=== PATIENT | male | born 1975 | race Two or more races ===

== ENCOUNTER 2018-04-27 10:26 | Day surgery (SDC) | payer OTHER ==
--- NOTE | 2018-04-06 12:14 | RADIOLOGY REPORT (SQ) ---
EXAM DESCRIPTION: CHEST PA/LATERAL COMPLETED DATE/TIME: 04/06/2018 11:24 am REASON FOR STUDY: Z01.810 COMPARISON: None. EXAM PARAMETERS: NUMBER OF VIEWS: two views TECHNIQUE: Digital Frontal and Lateral radiographic views of the chest acquired. RADIATION DOSE: NA LIMITATIONS: none FINDINGS: LUNGS AND PLEURA: No opacities, masses or pneumothorax. No pleural effusion. MEDIASTINUM AND HILAR STRUCTURES: No masses or contour abnormalities. HEART AND VASCULAR STRUCTURES: Heart normal size. No evidence for failure. BONES: No acute findings. HARDWARE: None in the chest. OTHER: No other significant finding. IMPRESSION: 1. NO SIGNIFICANT RADIOGRAPHIC FINDING IN THE CHEST. TECHNICAL DOCUMENTATION: JOB ID: [id number] [employer]- All Rights Reserved Reading location - IP/workstation name: [email or web address]
[2018-04-06 12:23] LABS: APPEARANCE,URINE CLEAR; BILIRUBIN,URINE NEGATIVE (NEGATIVE); COLOR,URINE YELLOW; GLUCOSE, URINE NEGATIVE (NEGATIVE); KETONES,URINE NEGATIVE (NEGATIVE); LEUKOCYTE ESTERASE,URINE NEGATIVE (NEGATIVE); NITRITE,URINE NEGATIVE (NEGATIVE); PROTEIN,URINE NEGATIVE (NEGATIVE); URINE SPECIFIC GRAVITY 1.013; UROBILINOGEN,URINE NEGATIVE mg/dL (<2.0)
[2018-04-06 12:35] LABS: HEMATOCRIT 45.4 % (37.9-51.0); HEMOGLOBIN 15.4 g/dL (13.5-17.0); MEAN CORPUSCULAR HEMOGLOBIN 31.8 pg (27.0-33.4); MEAN CORPUSCULAR VOLUME 93 fl (80-97); PLATELET COUNT 289 10^3/uL (150-450); RED BLOOD COUNT 4.86 10^6/uL (4.35-5.55); RED CELL DISTRIBUTION WIDTH 13.3 % (11.5-14.0); WHITE BLOOD COUNT 4.9 10^3/uL (4.0-10.5)
[2018-04-06 13:01] LABS: ANION GAP 12 (5-19); BLOOD UREA NITROGEN 9 mg/dL (7-20); CALCIUM 9.1 mg/dL (8.4-10.2); CARBON DIOXIDE 25 mmol/L (22-30); CHLORIDE 103 mmol/L (98-107); GLUCOSE 94 mg/dL (75-110); POTASSIUM 4.7 mmol/L (3.6-5.0); SODIUM 140.3 mmol/L (137-145)
--- NOTE | 2018-04-06 22:58 | EKG REPORT ---
SEVERITY:- NORMAL ECG - SINUS RHYTHM : Confirmed by: Daylin West 06-Apr-2018 22:57:48
[~2018-04-27 10:26] MED LIST: CEFAZOLIN 2 GM/D5W RTU 2 GM/50 ML RTUPB IV ONE; CEFAZOLIN 2 GM/D5W RTU 2 GM/50 ML RTUPB IV PRN; CEFAZOLIN SODIUM 2 GM in DEXTROSE 5%-WATER 100 ML IV PRN; LACTATED RINGERS 1000 ML IV PRN; LIDOCAINE 0.5% INJ-PF (5 MG/ML) 50 ML SDV SUBCUT PRN; LIDOCAINE 1% INJ-PF (10 MG/ML) 30 ML SDV ONE
[2018-04-27] MEDS ORDERED: BUPIVACAINE HCL 0.5 % INJ/PF 30 ML SDV ONE (11:28)
[2018-04-27] MEDS ORDERED: PROPOFOL INJ 200 MG/20 ML VIAL IV ONE (11:55)
[2018-04-27] MEDS ORDERED: FENTANYL CITRATE INJ/PF 100 MCG/2 ML AMPUL ONE (11:55)
[2018-04-27] MEDS ORDERED: MIDAZOLAM 2 MG/2 ML INJ ONE (11:55)
--- NOTE | 2018-04-27 13:03 | Operative Report ---
Operative Report DATE OF SURGERY: 04/27/18 PREOPERATIVE DIAGNOSIS: Foreign body right dorsal next MCP joint OPERATION: Removal of foreign body SURGEON: JAYME TRACEY ANESTHESIA: LMAC TISSUE REMOVED OR ALTERED: Foreign body to pathology ESTIMATED BLOOD LOSS: 25 PROCEDURE: With the patient supine on the operative the right upper extremities prepped and draped in sterile fashion. The skin overlying the dorsal aspect of the right index finger MCP joint is infiltrated with a combination of Xylocaine and Marcaine. A 1 cm transverse incision is made. The tissue was exposed bluntly. Using fluoroscopic guidance the foreign body is delivered into the field and removed using hemostat. The wound is irrigated. Hemostasis obtained with bipolar cautery. Wound is then closed with a single nylon suture and a compressive dressing. The patient was turned to PACU in satisfactory condition.
--- NOTE | 2018-04-27 13:07 | Discharge Summary ---
Discharge Summary (SDC) - Discharge Final Diagnosis: Foreign body right hand Date of Surgery: 04/27/18 Discharge Date: 04/27/18 Condition: Good Treatment or Instructions: Keep right hand clean and dry Prescriptions: Hydrocodone/Acetaminophen [Gillett 5-325 mg Tablet] 1 tab PO Q6 PRN #40 tablet PRN Reason: Discharge Diet: As Tolerated, Regular Discharge Activity: Balance Activity w/Rest, No tub bath Home Care Assistance: None Needed Report the Following to Your Physician Immediately: Shortness of Breath, Fever over 101 Degrees, Drainage-Foul Smelling
[2018-04-27] MEDS ORDERED: DIPHENHYDRAMINE HCL 50 MG/ML VIAL IV PRN (13:16)
[2018-04-27] MEDS ORDERED: PROMETHAZINE HCL INJ 25 MG/1 ML VIAL IV PRN (13:16)
[2018-04-27] MEDS ORDERED: FENTANYL CITRATE INJ/PF 100 MCG/2 ML AMPUL IV PRN ×3 (13:16)
[2018-04-27] MEDS ORDERED: MEPERIDINE HCL/PF INJ 25 MG/1 ML DISP.SYRIN IV PRN (13:16)
[2018-04-27] MEDS ORDERED: OXYCODONE-ACETAMINOPHEN 5-325 MG TABLET ONE (13:45)
[2018-04-27 15:11] VITALS: BP 113/76
--- NOTE | 2018-04-27 15:37 | RADIOLOGY REPORT (SQ) ---
EXAM DESCRIPTION: NO CHG FLUORO; FINGER RIGHT COMPLETED DATE/TIME: 04/27/2018 3:25 pm REASON FOR STUDY: FOREIGN BODY REMOVAL RT FINGER ASST WITH FLUORO IN OR S61.220A LACERATION W FB OF R IDX FNGR W/O DAMAGE TO NAIL, I COMPARISON: None. FLUOROSCOPY TIME: 37 seconds 6 images saved to PACS. TECHNIQUE: Intra-operative images acquired during surgical procedure to evaluate progress. NUMBER OF IMAGES: 6 LIMITATIONS: None. FINDINGS: Selected images from foreign body removal metallic density overlying base of proximal 2nd phalanx. IMPRESSION: IMAGE(S) OBTAINED DURING PROCEDURE. COMMENT: Quality ID 145: Final reports for procedures using fluoroscopy that document radiation exp osure indices, or exposure time and number of fluorographic images (if radiation exposure indices are not available) Please consult full operative report of the attending physician for description of the procedure. TECHNICAL DOCUMENTATION: JOB ID: [id number] [employer]- All Rights Reserved Reading location - IP/workstation name: [email or web address]
--- NOTE | 2018-04-27 15:37 | RADIOLOGY REPORT (SQ) ---
EXAM DESCRIPTION: NO CHG FLUORO; FINGER RIGHT COMPLETED DATE/TIME: 04/27/2018 3:25 pm REASON FOR STUDY: FOREIGN BODY REMOVAL RT FINGER ASST WITH FLUORO IN OR S61.220A LACERATION W FB OF R IDX FNGR W/O DAMAGE TO NAIL, I COMPARISON: None. FLUOROSCOPY TIME: 37 seconds 6 images saved to PACS. TECHNIQUE: Intra-operative images acquired during surgical procedure to evaluate progress. NUMBER OF IMAGES: 6 LIMITATIONS: None. FINDINGS: Selected images from foreign body removal metallic density overlying base of proximal 2nd phalanx. IMPRESSION: IMAGE(S) OBTAINED DURING PROCEDURE. COMMENT: Quality ID 145: Final reports for procedures using fluoroscopy that document radiation exp osure indices, or exposure time and number of fluorographic images (if radiation exposure indices are not available) Please consult full operative report of the attending physician for description of the procedure. TECHNICAL DOCUMENTATION: JOB ID: [id number] [employer]- All Rights Reserved Reading location - IP/workstation name: [email or web address]
== END 2018-04-27 15:10 | disposition home or self-care (01) ==
LOC: OROUT 10:26 → EDBD 10:26 → OROUT 15:10
PROVIDERS: ATTEND Orthopaedic Surgery
DX: S61.220A Laceration with foreign body of right index finger without damage to nail, initial encounter (principal); X58.XXXA Exposure to other specified factors, initial encounter; Y92.69 Other specified industrial and construction area as the place of occurrence of the external cause; Z01.810 Encounter for preprocedural cardiovascular examination; Z01.811 Encounter for preprocedural respiratory examination; Z01.812 Encounter for preprocedural laboratory examination
CPT/HCPCS: 93005; 36415; 85027; 80048; 81001; 88300 ×2; 71046; 73140; 93010; 26075; J2250; J3490 ×2; J3010; J2704; J0690; 01810